=== PATIENT | female | born 1960 | race Caucasian/White ===

== ENCOUNTER 2016-10-21 12:05 | Emergency (ER) | payer OTHER ==
[~2016-10-21] VITALS: Ht 157.5 cm; Wt 54.4 kg
--- NOTE | ~2016-10-21 | CR63 ---
[facility] A Service of [facility] RADIOLOGY TEXT RESULTS PATIENT: TOD WILLOUGHBY LOCATION: CFTX : 60 UNIT #: [id number] AGE: [address]: Pamela Garcia APRN SEX: F ORDER DR: [id number] [facility] [place] [address] [place], [place] [address] [id number] MR#: [id number] #: [id number] NAME: TOD WILLOUGHBY : 1960 SEX: F STUDY DATE/TIME: 10/21/2016 13:03 UNIT: [facility] ROOM: STUDY DESCRIPTION: CR Chest 2 View Attending Physician: Pamela Garcia A.P.R.N. Ordering Physician: Ed Robert Denney M.D. Primary Care Physician: Primary Care Physician No MEDICAL IMAGING REPORT This report is preliminary unless electronic signature is present EXAM Chest x-ray HISTORY Cough, congestion, shortness of breath for the past 5 days. TECHNIQUE 2 views of the chest were obtained. FINDINGS Bony structures are unremarkable. Heart size is normal and no abnormal mediastinal widening is seen. Patchy consolidation is noted in the right middle lobe. Given the patient's history, this probably represents pneumonia, although the infiltrate is nonspecific. Recommend radiographic followup until clearing. The lungs are otherwise clear. The diaphragms are flattened suggesting emphysema. IMPRESSION Right middle lobe infiltrate most likely representing pneumonia. Emphysema. The remaining lung crowe are clear. Dictated by... Edy Rivas M.D. THIS IS AN ELECTRONICALLY VERIFIED REPORT Edy Rivas M.D. at 10/23/2016 10:57 AM RLF/cora TD: 10/21/2016 17:53 JOB #: [id number] MEDICAL IMAGING REPORT Page 1 of 1 COPY
[~2016-10-21 12:05] MED LIST: BACTRIM DS TABL1 TA1 PO; BACTRIM DS TABL1 TAB PO; FLEXERIL10 MG PO; IBUPROFEN IB200 M1 PO; LORTAB 5/500 TA1 TA1 PO; NO MEDICATIONS; VICODIN 5/1 TAB 5/50 DOB
[2016-10-21 14:02] LABS: INFLUENZA A NEG (NEG); INFLUENZA B NEG (NEG)
== END 2016-10-21 14:27 | disposition home or self-care (01) ==
LOC: CED 12:05 → CFTX 12:05
PROVIDERS: Nurse Practitioner
DX: J18.9 Pneumonia, unspecified organism (principal); J98.01 Acute bronchospasm; R19.7 Diarrhea, unspecified; I10 Essential (primary) hypertension; F17.210 Nicotine dependence, cigarettes, uncomplicated
CPT/HCPCS: 71020; 87651; 87804; 94640; 96372; 99285; J0696